=== PATIENT | male | born 2005 | race Caucasian/White ===

== ENCOUNTER 2025-02-07 19:16 | Emergency (ER) | payer OTHER ==
[~2025-02-07] VITALS: Ht 193 cm; Wt 109.6 kg
[2025-02-07 19:17] VITALS: BP 125/64; TEMP 97.7; O2SAT 100
== END 2025-02-07 21:02 | disposition home or self-care (01) ==
LOC: M ED 19:16
DX: S60.940A Unspecified superficial injury of right index finger, initial encounter (principal); W23.0XXA Caught, crushed, jammed, or pinched between moving objects, initial encounter; Y92.009 Unspecified place in unspecified non-institutional (private) residence as the place of occurrence of the external cause; Y93.89 Activity, other specified; Y99.9 Unspecified external cause status